=== PATIENT | male | born 1935 | race Caucasian/White ===

== ENCOUNTER 2017-11-27 20:24 | Inpatient (IN) | payer MEDICARE, OTHER ==
[~2017-11-27] VITALS: Ht 180.3 cm; Wt 59.4 kg
[2017-11-27] MEDS ORDERED: LORAZEPAM 2 MG/1 ML VIAL ONE (22:36)
[2017-11-27] MEDS ORDERED: LORAZEPAM 2 MG/1 ML VIAL IM ONE (22:45)
--- NOTE | 2017-11-28 00:35 | NUR ---
REPORT GIVEN TO U NURSEJOSE
--- NOTE | 2017-11-28 02:45 | NUR ---
Pt. admitted to [facility], under care of Dr. SOUTH/CHARISSA Belongs List completed
[2017-11-28 03:00] VITALS: BP 134/78
[2017-11-28] MEDS ORDERED: MAGNESIUM HYDROXIDE 30 ML LIQUID UDC PO PRN (03:00)
[2017-11-28] MEDS ORDERED: MAG HYDROX/AL HYDROX/SIMETH 30 ML LIQUID UDC PO PRN (03:00)
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
[2017-11-28] MEDS ORDERED: OLANZAPINE 10 MG VIAL IM ONE (05:15)
--- NOTE | 2017-11-28 05:43 | NUR ---
pt has been awake, and agitated, for the past hour. he is now pounding the wall, and attempting to climb out of the zeke chair. attempts to strike staff, when redirected. Dr Lowery was paged, and pt was medicated with zyprexa 5 mg IM to the left deltoid, per orders, at 0534. as of 542, he remains restless, in the chair. monitored closely by staff. will continue to monitor closely.
--- NOTE | 2017-11-28 06:30 | NUR ---
APPEARS CALMER, NOW. ASSISTED TO BED. DIAPER CHANGED. APPEARS TO BE ASLEEP. NO DISTRESS NOTED.
[2017-11-28 07:30] VITALS: BP 132/67
[2017-11-28] MEDS: ACETAMINOPHEN 325 MG TABLET PO PRN (10:04)
[2017-11-28] MEDS: LORAZEPAM 1 MG TABLET PO PRN (10:04)
--- NOTE | 2017-11-28 13:00 | NUR ---
[facility] 1:1 sitter at bedside. Patient is sleeping at this time, in no acute distress. received report from Vincent. Will continue to monitor
[2017-11-28] MEDS: QUETIAPINE FUMARATE 25 MG TABLET PO SCH (16:11)
--- NOTE | 2017-11-28 18:15 | NUR ---
End of shift note: Patient in bed, asleep, sitter at bedside. No acute distress noted. Patient refused to eat dinner, will endorse to material handler 2nd shift.
[2017-11-28 19:00] VITALS: BP 102/80
[2017-11-29 04:00] VITALS: BP 96/51
[2017-11-29 08:00] VITALS: BP 143/84
[2017-11-29] MEDS: QUETIAPINE FUMARATE 25 MG TABLET PO SCH ×4 (08:37→20:41)
[2017-11-29] MEDS ORDERED: OLANZAPINE 10 MG VIAL IM ONE (10:30)
[2017-11-29] MEDS ORDERED: LORAZEPAM 2 MG/1 ML VIAL IM ONE (10:30)
--- NOTE | 2017-11-29 10:31 | NUR ---
Noted pt with aggressive and combative behavior. Pt got out of bed and started taking off his clothes and when redirected by BUSINESS CONSULTANT, attempted to strike out at staff members. Hitting jamison and room furniture. Started to walk out of his room undressed. Unable to redirect pt and calm down. Pt attempting to kick staff as well when redirected to chair. All non-drug interventions ineffective at this time. Relayed to Dr. Lowery and obtained telephone order for Zyprexa 5mg IM and Lorazepam 1mg IM X 1 dose only. T.O. read back and verified with Dr. Lowery. Noted and carried out.
[2017-11-29] MEDS ORDERED: CLONIDINE HCL 0.1 MG TABLET PO PRN (11:30)
--- NOTE | 2017-11-29 13:30 | NUR ---
Unable to tolerate PO medication at this time. Pt unable to follow directions. Appears restless but drowsy. Will continue to monitor.
[2017-11-29 15:34] VITALS: BP 100/60
[2017-11-29] MEDS: LORAZEPAM 1 MG TABLET PO PRN (16:49)
[2017-11-29] MEDS: OLANZAPINE ZYDIS 5 MG TAB.RAPDIS PO PRN (16:49)
--- NOTE | 2017-11-29 18:50 | NUR ---
Pt continued to have behavioral manifestations throughout shift. Pt remained aggressive and combative. Continued to have episodes of banging on the wall and side rails. Was up in chair and banging on his table. Pt restless. Redirectable at times. No acute distress noted. 1:1 sitter at bedside. Required 3-4 staff members for incontinence care to be provided. Will endorse to incoming nurse.
--- NOTE | 2017-11-29 19:10 | NUR ---
RECEIVED PT ASLEEP ON BED, ON 1:1 SITTER AT BEDSIDE. NO SIGNS OF ACUTE DISTRESS NOTED. SAFETY MEASURES INITIATED.
[2017-11-29 19:19] VITALS: BP 119/74
--- NOTE | 2017-11-30 06:48 | NUR ---
PT SLEPT THROUGHOUT THE SHIFT. ON 1:1 SITTER AT BEDSIDE. NO SIGNS OF RSPIRTATORY DISTRESS NOTED. SAFE ENVIRONMENT MAINTAINED AT ALL TIMES.
[2017-11-30 07:13] LABS: ALANINE AMINOTRANSFERASE 17 U/L (16-63); ALKALINE PHOSPHATASE 81 U/L (50-136); ASPARTATE AMINOTRANSFERASE 25 U/L (15-37); BILIRUBIN,TOTAL 0.4 mg/dL (0.2-1.0); CARBON DIOXIDE 31 mmol/L (21-32); CHLORIDE 107 mmol/L (98-107); CREATININE 1.2 mg/dL (0.6-1.3); GLUCOSE 92 mg/dL (74-106); POTASSIUM 3.4 mmol/L (3.5-5.1); TOTAL PROTEIN, SERUM 6.6 g/dL (6.4-8.2); UREA NITROGEN, BLOOD 23 mg/dL (7-18)
--- NOTE | 2017-11-30 07:53 | NUR ---
RECEIVED PATIENT ASLEEP BUT EASILY AROUSABLE ON ROUNDS NO S/S OF AGGRESSION AT THIS TIME REMAIN ON HOLD FOR SAFETY.WILL CONTINUE TO PROVIDE SAFE AND THERAPEUTIC ENVIRONMENT AT ALL TIMES.
[2017-11-30 08:00] VITALS: BP 121/52
[2017-11-30 08:19] LABS: THYROID STIMULATING HORMONE 0.313 mIU/mL (0.358-3.740)
--- NOTE | 2017-11-30 09:47 | NUR ---
DR SOUTH HERE SEEN PATIENT WITH DAYS HOLD ORDER AND NOTED PATIENT IS UNABLE TO SIGN AT THIS TIME
[2017-11-30] MEDS: QUETIAPINE FUMARATE 25 MG TABLET PO SCH ×4 (11:00→20:22)
--- NOTE | 2017-11-30 12:45 | NUR ---
SITTING UP ON THE BONNIE CHAIR IN HIS ROOM VERY CONFUSED BUT TOOK HIS MEDICATIONS MADE COMFORTABLE AND WILL CONTINUE TO OBSERVE.
[2017-11-30] MEDS: LORAZEPAM 1 MG TABLET PO PRN (14:22)
--- NOTE | 2017-11-30 14:23 | NUR ---
VERY CONFUSED AGITATED GRABBING AND COMBATIVE UNABLE TO REDIRECT MEDICATED WITH ATIVAN ORDERED AND WILL OBSERVE.
[2017-11-30] MEDS ORDERED: POTASSIUM CHLORIDE 20 MEQ TAB.PRT.SR PO ONE (14:45)
--- NOTE | 2017-11-30 16:05 | NUR ---
STILL VERY AGITATED OUT OF CONTROL GRABBING SWINGING CALLED DR SOUTH AND LEFT A MESSAGE.
[2017-11-30] MEDS ORDERED: OLANZAPINE 10 MG VIAL IM STA (16:14)
[2017-11-30 16:19] VITALS: BP 130/80
--- NOTE | 2017-11-30 16:22 | NUR ---
ZYPREXA GIVEN IM ORDERED AND WILL OBSERVE.
--- NOTE | 2017-11-30 18:46 | NUR ---
SITTING UP ON THE CHAIR VERY CONFUSED AND DISORIENTED WITH LOW ENERGY NOT STRIKING OUT AT THIS TIME WILL CONTINUE TO OBSERVE AND PROVIDE SAFE AND THERAPEUTIC ENVIRONMENT
--- NOTE | 2017-11-30 19:00 | NUR ---
PATIENT UP IN CHAIR, CONFUSED, WITH EPISODES OF COMBATIVE BEHAVIOR, TRIES TO HIT STAFF DURING CARE, OFFER FOOD AND DRINK, PATIENT TALKS TO THE SHARMA AND SELF, CONT ON 1;1 SITTER FOR SAFETY, CONT TO MONITOR.
[2017-11-30 20:15] VITALS: BP 143/86
[2017-11-30] MEDS: ZOLPIDEM 5 MG TABLET PO PRN (22:58)
[2017-11-30] MEDS: ACETAMINOPHEN 325 MG TABLET PO PRN (22:59)
[2017-12-01] MEDS: LORAZEPAM 1 MG TABLET PO PRN ×2 (01:31→17:39)
--- NOTE | 2017-12-01 06:38 | NUR ---
PATIENT WAS PUT BACK TO BED AT 0100, PATIENT STILL AWAKE TRIES TO CLIMB OUT OF BED, PATIENT SLEPT FOR 45 MINUTES ONLY. STILL COMBATIVE TRIES TO HIT STAFF, CONT 1;1 SITTER FOR SAFETY.
[2017-12-01 07:11] VITALS: BP 134/85
[2017-12-01] MEDS: OLANZAPINE ZYDIS 5 MG TAB.RAPDIS PO PRN (07:51)
--- NOTE | 2017-12-01 07:54 | NUR ---
SITTING UP ON THE CHAIR BANGING AND STRIKING OUT UNABLE TO RELAY NEEDS AND UNABLE TO REDIRECT MEDICATED WITH ORAL ZYPREXA ORDERED AND WILL OBSERVE.
[2017-12-01] MEDS: QUETIAPINE FUMARATE 25 MG TABLET PO SCH ×4 (08:41→20:25)
[2017-12-01] MEDS: Z GUARD REMEDY PASTE 57 GM TUBE TOP SCH ×2 (09:46→20:25)
--- NOTE | 2017-12-01 09:47 | NUR ---
DR SOUTH HERE TO SEE PATIENT AWARE OF UNCOOPERATIVE AND COMBATIVENESS WITH NEW ORDERS AND NOTED.
[2017-12-01 13:00] VITALS: BP 138/84
--- NOTE | 2017-12-01 15:12 | NUR ---
Initial Discharge Instructions: Patient currently lives at home with his family [[id number], [place] [id number]; [phone]]. SW will attempt to find contact information for patient's family. SW will continue to collaborate with pt, MD, and the treatment team to discuss most appropriate discharge plans for this patient. SW will form a safe and proper discharge plan.
[2017-12-01 15:30] VITALS: BP 144/78
[2017-12-01] MEDS: ACETAMINOPHEN 325 MG TABLET PO PRN (17:39)
--- NOTE | 2017-12-01 17:39 | NUR ---
REMAIN CONFUSED DISORIENTED TRYING TO GET OUT OF THE CHAIR UNAWARE OF HIS DESTINATION NOTED WITH FACIAL GRIMACING UNABLE TO REDIRECT MEDICATED WITH TYLENOL AND ATIVAN ORDERED MADE COMFORTABLE AND WILL CONTINUE TO OBSERVE.
--- NOTE | 2017-12-01 19:00 | NUR ---
Received patient in chair, awake still combative, tries to strike staff and tries to kick staff also, cont 1;1 sitter for safety, needs maximum assist with adl.
[2017-12-01 19:34] VITALS: BP 142/86
[2017-12-01] MEDS: ZOLPIDEM 5 MG TABLET PO PRN (20:59)
[2017-12-02 05:30] VITALS: BP 123/78
--- NOTE | 2017-12-02 05:38 | NUR ---
PATIENT SLEPT FOR 9.40 HOURS, KEPT CLEAN AND DRY, NO S/S OF DISCOMFORT, KEPT CLEAN DRY AND COMFORTABLE, CONT ON 1;1 SITTER FOR SAFETY. CONT TO MONITOR.
[2017-12-02 07:49] VITALS: BP 156/92
[2017-12-02] MEDS: QUETIAPINE FUMARATE 25 MG TABLET PO SCH ×4 (08:06→20:53)
[2017-12-02] MEDS: Z GUARD REMEDY PASTE 57 GM TUBE TOP SCH ×2 (08:06→20:53)
--- NOTE | 2017-12-02 12:32 | NUR ---
TRANSFER THE PT TO U VIA RANJEET CHAIR IN STABLE CONDITION.
[2017-12-02] MEDS: OLANZAPINE ZYDIS 5 MG TAB.RAPDIS PO PRN (12:39)
--- NOTE | 2017-12-02 12:41 | NUR ---
GPS/RN- patient received anxious, restless, confused disorganized, disrobing, aggressive. PRN offered by staff, slapping med cup, combative, behavior escalating. Redirected calm at this time continue to monitor
--- NOTE | 2017-12-02 12:50 | NUR ---
Patient received to care in zeke-chair. Pt is irritable, removes his gown, angry on approach. Pt does not answer questions, cussing. JEANNIE Foster offered, pt threw the pill on the floor. will continue to monitor.
[2017-12-02 13:42] VITALS: BP 140/92
[2017-12-02] MEDS ORDERED: OLANZAPINE 10 MG VIAL IM ONE (13:45)
--- NOTE | 2017-12-02 13:48 | NUR ---
GPS/RN- patient anxious restless, sitting up in gerichair with table for security public safety officer at side, patient attempting to slide out of chair, disrobing, swinging at staff when redirected. Dr Lowery Notified. Received orders for Zyprexa 10mg IM Once, orders repeated back. Vitals stable for IM.
--- NOTE | 2017-12-02 13:54 | NUR ---
GPS/RN- patient attempting to grab staff and patients as they walk by. patient confused and disorganized. unable to redirect. refuses PRN, combative. Slapping med cup out of nurses hand.
[2017-12-02 15:41] VITALS: BP 144/98
[2017-12-02 19:30] VITALS: BP 103/65
--- NOTE | 2017-12-02 23:40 | NUR ---
GPS: TRANSFERRED PATIENT TO 2ND FLOOR VIA BONNIE CHAIR ESCORTED VIA 1:1 SITTER. ROOM NUMBER [id number] PSYCH OVERFLOW.V/S WNL. NO C.O PAIN OR DISCOMFORT. REPORT GIVEN TO ADEEL PERALES.
--- NOTE | 2017-12-02 23:45 | NUR ---
PT ARRIVED ON GP OVERFLOW FLOOR AT 2345, ESCORTED BY 1:1 SITTER AND RN. PT IN BONNIE-CHAIR. 1:1 SITTER AT BEDSIDE. PT STABLE, NO PAIN, C/P, SOB, N/V. WILL CONTINUE TO MONITOR.
[2017-12-03 00:15] VITALS: BP 117/76
[2017-12-03 03:46] VITALS: BP 108/71
--- NOTE | 2017-12-03 04:30 | NUR ---
PT SLEEPING IN BED. SITTER AT BEDSIDE. VSS, NO COMPLAINTS OF PAIN, C/P, SOB, N/V. WILL CONTINUE TO MONITOR AND PROVIDE SAFETY PRECAUTIONS.
[2017-12-03 06:43] LABS: CARBON DIOXIDE 29 mmol/L (21-32); CHLORIDE 107 mmol/L (98-107); CREATININE 1.1 mg/dL (0.6-1.3); GLUCOSE 91 mg/dL (74-106); POTASSIUM 3.6 mmol/L (3.5-5.1); UREA NITROGEN, BLOOD 28 mg/dL (7-18)
[2017-12-03 08:00] VITALS: BP 142/92
[2017-12-03] MEDS: QUETIAPINE FUMARATE 25 MG TABLET PO SCH ×4 (08:06→20:43)
[2017-12-03] MEDS: LORAZEPAM 1 MG TABLET PO PRN ×2 (08:06→15:55)
--- NOTE | 2017-12-03 08:06 | NUR ---
pt is very restless Ativan 1mg Po per orders given
[2017-12-03] MEDS: Z GUARD REMEDY PASTE 57 GM TUBE TOP SCH ×2 (08:14→20:44)
[2017-12-03] MEDS: OLANZAPINE ZYDIS 5 MG TAB.RAPDIS PO PRN (09:45)
[2017-12-03 16:09] VITALS: BP 106/73
[2017-12-03 19:00] VITALS: BP 106/65
--- NOTE | 2017-12-03 19:30 | NUR ---
RECEIVED SHIFT REPORT FROM EDITH HU. PT RESTING IN BED COMFORTABLY. PT IS CALM & COOPERATIVE. 1:1 SITTER AT BEDSIDE FOR SAFETY. PT IS ON 5250 FOR DTO. DENIES PAIN, C/P, SOB, N/V. BED IN LOW AND LOCKED POSITION WITH BILATERAL UPPER SIDERAILS UP. WILL CONTINUE TO MONITOR AND PROVIDE SAFETY PRECAUTIONS.
[2017-12-04 04:00] VITALS: BP 117/78
--- NOTE | 2017-12-04 06:33 | NUR ---
PT SLEPT COMFORTABLY THROUGH THE NIGHT. PROVIDED REORIENTATION TO REASSURE PT OF ENVIRONMENT/SURROUNDING. PT DID NOT HAVE ANY EPISODE OF VOID OR BM THIS SHIFT. ENCOURAGED 1:1 SITTER TO PROVIDE ORAL HYDRATION ONCE PT IS AWAKE. PT DOES NOT APPEAR TO BE IN APPARENT DISTRESS. PROVIDED 60 CC OF ORAL HYDRATION AROUND 0600. BED IN LOW AND LOCKED POSITION WITH BILATERAL UPPER SIDERAILS UP. 1:1 SITTER AT BEDSIDE FOR SAFETY PRECAUTIONS.
[2017-12-04 07:33] VITALS: BP 118/70
[2017-12-04] MEDS: QUETIAPINE FUMARATE 25 MG TABLET PO SCH (08:03)
[2017-12-04] MEDS: OLANZAPINE ZYDIS 5 MG TAB.RAPDIS PO PRN (08:03)
[2017-12-04] MEDS: Z GUARD REMEDY PASTE 57 GM TUBE TOP SCH ×2 (08:40→20:53)
[2017-12-04] MEDS: LORAZEPAM 1 MG TABLET PO PRN ×2 (11:28→22:54)
--- NOTE | 2017-12-04 12:37 | NUR ---
pt is combative hitting and scratching the staff and pulling the stuff from room dr huggins made aware
--- NOTE | 2017-12-04 12:41 | NUR ---
Firearms Report: Die Sinker completed and submitted [employer] Firearms Report on 12/04/17 for 5250 GD certification.
[2017-12-04] MEDS ORDERED: OLANZAPINE 10 MG VIAL IM ONE (12:45)
[2017-12-04] MEDS: QUETIAPINE FUMARATE 100 MG TABLET PO SCH ×2 (13:13→17:46)
[2017-12-04 14:25] VITALS: BP 100/64
--- NOTE | 2017-12-04 16:00 | NUR ---
Gps/Director Of Services- Received report from Amanda Martinez, received via zeke-chair, appeared to be asleep, no distress., kept sitter for safety.
--- NOTE | 2017-12-04 16:02 | NUR ---
transfer the pt to u via lien chair in stable condition
[2017-12-04] MEDS: ENSURE WITH FIBER 237 ML LIQUID (CHOCOLATE) PO SCH (17:50)
--- NOTE | 2017-12-04 18:22 | NUR ---
Gps/Major Gifts Director- Sleepy/drowsy, arousable, remains up on his zeke-chair. Needed assist with his meals. Noted occ. weak coughing during dinner, sitter was instructed not to feed pt. if sleepy ,not following directions. Continue to monitor safety.
--- NOTE | 2017-12-04 19:30 | NUR ---
RECEIVED PATIENT IN THE HALLWAY NEAR THE NURSING STATION. HE IS NOTED AWAKE A/O X1. HE CONTINUE ON 1:1 SUPERVISION FOR SAFETY PRECAUTION. HE IS NOTED WITH FLAT AFFECT, APATHETIC. MUMBLES WORDS, DISORGANIZED AND GUARDED. CONFUSED AND UNABLE TO VERBALIZED FEELINGS. HE IS SOMEWHAT RESISTANCE TO CARE AND ADLs. HE IS ABLE TO TAKE MEDICATIONS CRUSHED AND IN APPLE SAUCE. V/S STABLE AT THIS TIME. SAFETY WAS EMPHASIS. WILL CONTINUE TO MONITOR CLOSELY.
[2017-12-04 20:19] VITALS: BP 116/74
[2017-12-04] MEDS: ZOLPIDEM 5 MG TABLET PO PRN (21:15)
--- NOTE | 2017-12-04 21:39 | NUR ---
PATIENT NOTED RESTLESS, UNABLE TO FALL ASLEEP. AMBIEN 5MG PO PRN WAS GIVEN FOR INSOMNIA. WILL CONTINUE TO MONITOR.
--- NOTE | 2017-12-04 22:54 | NUR ---
AMBIEN 5MG PO PRN FOR INSOMNIA NOT EFFECTIVE. PT UNABLE TO FALL ASLEEP. CONTINUE RESTLESS. ATIVAN 1MG PO PRN WAS GIVEN FOR AGITATION. WILL CONTINUE TO MONITOR.
[2017-12-05 07:30] VITALS: BP 143/90
[2017-12-05] MEDS: ENSURE WITH FIBER 237 ML LIQUID (CHOCOLATE) PO SCH ×2 (08:38→17:27)
[2017-12-05] MEDS: Z GUARD REMEDY PASTE 57 GM TUBE TOP SCH ×2 (08:42→20:47)
[2017-12-05] MEDS: QUETIAPINE FUMARATE 100 MG TABLET PO SCH ×3 (08:45→16:38)
[2017-12-05 15:05] VITALS: BP 127/80
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
[2017-12-05] MEDS: ZOLPIDEM 5 MG TABLET PO PRN (20:46)
[2017-12-06] MEDS: LORAZEPAM 1 MG TABLET PO PRN ×2 (02:42→11:24)
--- NOTE | 2017-12-06 07:03 | NUR ---
PATIENT DID NOT SLEEP, PATIENT NOTED SLEEPY BUT RESIST TO GO TO SLEEP, CONT 1;1 SITTER FOR SAFETY, STILL WITH EPISODES OF STRIKING STAFF, CLIMB OOBS, MEDICATED FOR AGITATION WITH SOME HELP, CONT TO MONITOR.
[2017-12-06 07:30] VITALS: BP 145/83
[2017-12-06] MEDS: QUETIAPINE FUMARATE 100 MG TABLET PO SCH ×3 (08:14→17:14)
[2017-12-06] MEDS: Z GUARD REMEDY PASTE 57 GM TUBE TOP SCH ×2 (08:15→20:49)
[2017-12-06] MEDS: ENSURE WITH FIBER 237 ML LIQUID (CHOCOLATE) PO SCH ×2 (08:15→17:18)
[2017-12-06 15:00] VITALS: BP 113/71
--- NOTE | 2017-12-06 17:39 | NUR ---
Gps/Marking Clerk- Was able to stay up on his zeke-chair, and was in the activity room till after lunch. Patient was put back to bed w/ 2 staff assisting, repositioned for comfort.Unable to eat dinner at this time, pt. was sleeping , 1700 seroquel unable to administer , will re -offer at a later time ..No aggressive behavior noted , no striking noted this pm. Continue to monitor safety
--- NOTE | 2017-12-06 17:56 | NUR ---
Gps/Radiosonde Operator- Awake, HOB elevated, sitter assisted pt. with dinner, MOM 30 ml was given po with 4 0z.of prune juice, constipated, no bm for few day, abdomen soft not distended.
[2017-12-06 21:20] VITALS: BP 126/77
[2017-12-07] MEDS: OLANZAPINE ZYDIS 5 MG TAB.RAPDIS PO PRN (08:09)
[2017-12-07] MEDS: LORAZEPAM 1 MG TABLET PO PRN ×2 (08:09→17:13)
[2017-12-07 08:30] VITALS: BP 141/98
[2017-12-07] MEDS: ENSURE WITH FIBER 237 ML LIQUID (CHOCOLATE) PO SCH ×2 (08:33→17:34)
[2017-12-07] MEDS: Z GUARD REMEDY PASTE 57 GM TUBE TOP SCH ×2 (08:34→20:13)
[2017-12-07] MEDS: QUETIAPINE FUMARATE 100 MG TABLET PO SCH ×4 (08:52→20:13)
[2017-12-07] MEDS: ACETAMINOPHEN 325 MG TABLET PO PRN (08:52)
--- NOTE | 2017-12-07 11:14 | NUR ---
GPS: Nursing Notes: Thought Disorder: Patient is awake and responding to his name, confused, disoriented, impaired judgment, poor insight, restless, episodes of constantly trying to climb over the side rails, striking out when staff trying to change his wet diaper, poor impulse control, resistant with nursing care, unable to follow directions, continue with 1:1 sitter for assaultive and fall precautions, unable to formulate a viable plan for self care, continue with treatment plan.
[2017-12-07 15:24] VITALS: BP 124/70
[2017-12-07 20:00] VITALS: BP 122/85
--- NOTE | 2017-12-08 06:06 | NUR ---
Received Pt in bed sleeping with 1:1 sitter present. Irritable upon waking, noted to be confused, disoriented, and disorganized. Compliant with medications with prompting. Pt then went back to sleep. VS stable, no c/o pain.
[2017-12-08 07:30] VITALS: BP 114/81
[2017-12-08] MEDS: ENSURE WITH FIBER 237 ML LIQUID (CHOCOLATE) PO SCH ×2 (09:00→17:00)
[2017-12-08] MEDS: QUETIAPINE FUMARATE 100 MG TABLET PO SCH ×4 (09:05→21:16)
[2017-12-08] MEDS: Z GUARD REMEDY PASTE 57 GM TUBE TOP SCH ×2 (09:05→21:24)
[2017-12-08] MEDS: OLANZAPINE ZYDIS 5 MG TAB.RAPDIS PO PRN ×2 (09:24→17:36)
[2017-12-08] MEDS: DIVALPROEX 250 MG TABLET.DR PO SCH ×2 (12:58→17:07)
[2017-12-08 15:13] VITALS: BP 136/76
[2017-12-08 19:30] VITALS: BP 115/70
[2017-12-08] MEDS: LORAZEPAM 1 MG TABLET PO PRN (19:57)
--- NOTE | 2017-12-08 20:00 | NUR ---
RECEIVED PATIENT IN HIS ROOM SITTING IN A BONNIE CHAIR. HE IS NOTED AWAKE A/O X0. HE CONTINUE ON 1:1 SUPERVISION FOR FALL AND AGGRESSIVE/COMBATIVE BX. PRECAUTION. HE IS NOTED WITH FLAT AFFECT, APATHETIC. MUMBLES WORDS, CONFUSED DISORGANIZED AND GUARDED. UNABLE TO VERBALIZED FEELINGS. HE IS RESISTANT TO CARE AND ADLs. HE IS NOTED ANXIOUS AND RESTLESS. ATIVAN 1 MG PO PRN WAS GIVEN IN APPLE SAUCE, HOWEVER, HE SPITED HALF OF THE MEDICATION. HE IS UNABLE TO BE REDIRECTED. V/S STABLE AT THIS TIME. SAFETY WAS EMPHASIS. WILL CONTINUE TO MONITOR CLOSELY.
--- NOTE | 2017-12-08 21:20 | NUR ---
ATTEMPTED TO ADMINISTER QHS MEDICATION SEROQUEL 100MG PO, HOWEVER, PATIENT SPITTED APPROX HALF OF THE PILL. UNABLE TO BE REDIRECTED. WILL CONTINUE TO MONITOR.
[2017-12-08] MEDS: ZOLPIDEM 5 MG TABLET PO PRN (22:52)
--- NOTE | 2017-12-08 22:55 | NUR ---
PATIENT CONTINUE RESTLESS, AND UNABLE TO FALL ASLEEP, AMBIEN 5MG PO PRN WAS GIVEN FOR INSOMNIA. WILL CONTINUE TO MONITOR.
[2017-12-09 07:30] VITALS: BP 118/74
[2017-12-09] MEDS: ENSURE WITH FIBER 237 ML LIQUID (CHOCOLATE) PO SCH ×2 (08:53→17:00)
[2017-12-09] MEDS: DIVALPROEX SPRINKLE 125 MG CAP.SPRINK PO SCH ×4 (08:53→17:50)
[2017-12-09] MEDS: Z GUARD REMEDY PASTE 57 GM TUBE TOP SCH ×2 (08:53→21:02)
[2017-12-09] MEDS: QUETIAPINE FUMARATE 100 MG TABLET PO SCH ×3 (08:53→12:46)
[2017-12-09] MEDS: OLANZAPINE ZYDIS 5 MG TAB.RAPDIS PO PRN ×2 (09:28→09:33)
[2017-12-09] MEDS ORDERED: OLANZAPINE 10 MG VIAL IM ONE (11:00)
--- NOTE | 2017-12-09 11:03 | NUR ---
GPS.RN- patient continues to be anxious restless, aggressive, unable to safely provide care, patient refused PO meds, offered PRN refused, patient behavior escalating, patient in room with sitter for safety, removed from stimuli in hallway, continues combative, Dr Lowery Notified. orders received and repeated back Zyprexa 10mg IM once.
[2017-12-09] MEDS ORDERED: HALOPERIDOL LACTATE 5 MG/1 ML VIAL IM STA (12:55)
[2017-12-09] MEDS: HALOPERIDOL 5 MG TABLET PO SCH ×2 (13:00→17:50)
[2017-12-09] MEDS: diphenhydrAMINE 25 MG/10 ML UDC PO SCH (18:00)
[2017-12-09 18:26] VITALS: BP 133/79
--- NOTE | 2017-12-09 18:45 | NUR ---
GPS.RN- patient continues to be anxious restless frequent redirection needed. patient judgement and insight are impaired, refusing meals, unable to redirect, does not comprehend. Frequent redirection needed for med compliance, spitting out meds. Confused, disorganized, disoriented, disrobing, aggressive when attempting to assist with ADLs and provide care, attempts to climb out of bed without assistance fall risk continues with sitter for safety.
--- NOTE | 2017-12-09 19:45 | NUR ---
RECEIVED PATIENT IN HIS ROOM IN BED. HE IS NOTED AWAKE A/O X0. HE CONTINUE ON 1:1 SUPERVISION FOR FALL AND AGGRESSIVE/COMBATIVE BX. PRECAUTION. HE IS NOTED RESTLESS, FLAT AFFECT, LABILE BX, LOW MOOD. MUMBLES WORDS, CONFUSED DISORGANIZED UNCOOPERATIVE AND GUARDED. UNABLE TO VERBALIZED FEELINGS. HE IS RESISTANT TO CARE AND ADLs. NO EATING, LOW FLUID INTAKE HE WAS OFFERED SNACKS, HOWEVER, HE ONLY HAD A FEW SIPS OF ENSURES. HE CONTINUE SPITTING HIS FOOD. HE IS UNABLE TO BE REDIRECTED. V/S STABLE AT THIS TIME. SAFETY WAS EMPHASIS. WILL CONTINUE TO MONITOR CLOSELY.
[2017-12-09] MEDS: ZOLPIDEM 5 MG TABLET PO PRN (22:35)
--- NOTE | 2017-12-09 22:35 | NUR ---
PATIENT CONTINUE RESTLESS, UNABLE TO FALL ASLEEP. AMBIEN 5MG PO PRN WAS GIVEN FOR INSOMNIA. WILL CONTINUE TO MONITOR.
[2017-12-10] MEDS: LORAZEPAM 1 MG TABLET PO PRN ×2 (00:42→13:43)
--- NOTE | 2017-12-10 00:45 | NUR ---
PATIENT CONTINUE RESTLESS IN HIS BED. HE CONTINUE ON 1:1 SUPERVISION FOR SAFETY. V/S NOTED STABLE AT THIS TIME. ATIVAN 1MG PO PRN WAS GIVEN FOR AGITATION, ATIVAN WAS CRUSHED AND GIVEN IN APPLE SAUCE, PATIENT CONTINUE REFUSING TO DRINK FLUIDS AND SPITTING FOOD. WILL CONTINUE WITH PUREED DIET.
[2017-12-10] MEDS: OLANZAPINE ZYDIS 5 MG TAB.RAPDIS PO PRN (05:59)
--- NOTE | 2017-12-10 06:00 | NUR ---
PATIENT NOTED RESTLESS, ANXIOUS, RESISTANT TO CARE, ZYPREXA 5MG PO PRN WAS GIVEN. HE ALSO WAS ABLE TO DRINK ENSURE (230CC APPROX). HE SLEPT FOR APPROX 1.30HRS THROUGH THE NIGHT. Addendum: 12/10/17 at 0707 by VICENTE PEREZ RN HE WILL CONTINUE ON 1:1 SUPERVISION FOR SAFETY
[2017-12-10 07:30] VITALS: BP 123/71
[2017-12-10] MEDS: DIVALPROEX SPRINKLE 125 MG CAP.SPRINK PO SCH ×3 (08:26→17:14)
[2017-12-10] MEDS: Z GUARD REMEDY PASTE 57 GM TUBE TOP SCH ×2 (08:26→21:04)
[2017-12-10] MEDS: HALOPERIDOL 5 MG TABLET PO SCH ×4 (08:26→21:04)
[2017-12-10] MEDS: diphenhydrAMINE 25 MG/10 ML UDC PO SCH ×2 (08:27→21:04)
[2017-12-10] MEDS: ENSURE WITH FIBER 237 ML LIQUID (CHOCOLATE) PO SCH ×2 (08:34→17:15)
[2017-12-10 09:26] LABS: BASOPHILS # (AUTO) 0.1 K/uL (0.0-8.0); EOSINOPHILS # (AUTO) 0.1 K/uL (0.0-0.7); EOSINOPHILS % (AUTO) 0.6 % (0.0-7.0); HEMATOCRIT 41.5 % (36.7-47.1); HEMOGLOBIN 13.9 g/dL (12.5-16.3); LYMPHOCYTES # (AUTO) 0.8 K/uL (20.0-40.0); LYMPHOCYTES % (AUTO) 9.8 % (20.5-51.5); MEAN CORPUSCULAR HEMOGLOBIN 28.6 uug (23.8-33.4); MEAN CORPUSCULAR HGB CONC 34 g/dL (32.5-36.3); MEAN CORPUSCULAR VOLUME 85.4 fL (73.0-96.2); MONOCYTES # (AUTO) 0.5 K/uL (2.0-10.0); MONOCYTES % (AUTO) 5.9 % (0.0-11.0); NEUTROPHILS # (AUTO) 7.1 K/uL (1.8-8.9); NEUTROPHILS % (AUTO) 82.7 % (38.5-71.5); PLATELET COUNT (AUTO) 275 K/uL (152-348); RED BLOOD CELL COUNT(AUTO) 4.86 MIL/uL (4.06-5.63); WHITE BLOOD COUNT (AUTO) 8.5 K/uL (3.6-10.2)
[2017-12-10 09:37] LABS: CARBON DIOXIDE 30 mmol/L (21-32); CHLORIDE 105 mmol/L (98-107); CREATININE 1.5 mg/dL (0.6-1.3); GLUCOSE 113 mg/dL (74-106); POTASSIUM 3.9 mmol/L (3.5-5.1); UREA NITROGEN, BLOOD 50 mg/dL (7-18)
[2017-12-10 09:43] LABS: THYROID STIMULATING HORMONE 0.326 mIU/mL (0.358-3.740)
[2017-12-10 09:44] LABS: MAGNESIUM 2.4 mg/dL (1.8-2.4); PHOSPHOROUS 3.2 mg/dL (2.5-4.9)
[2017-12-10 16:38] VITALS: BP 134/79
[2017-12-10 20:00] VITALS: BP 123/69
--- NOTE | 2017-12-11 06:27 | NUR ---
Received pt, pt asleep in bed with 1:1 sitter within arm length, pt labile, confused, pt compliant with meds with prompting.
[2017-12-11 07:30] VITALS: BP 131/60
[2017-12-11] MEDS: DIVALPROEX SPRINKLE 125 MG CAP.SPRINK PO SCH ×3 (08:23→18:09)
[2017-12-11] MEDS: HALOPERIDOL 5 MG TABLET PO SCH ×4 (08:24→20:04)
[2017-12-11] MEDS: diphenhydrAMINE 25 MG/10 ML UDC PO SCH ×2 (08:24→20:05)
[2017-12-11] MEDS: Z GUARD REMEDY PASTE 57 GM TUBE TOP SCH ×2 (08:24→20:06)
[2017-12-11] MEDS: ENSURE WITH FIBER 237 ML LIQUID (CHOCOLATE) PO SCH ×2 (08:24→17:00)
[2017-12-11 15:15] VITALS: BP 121/62
--- NOTE | 2017-12-11 16:06 | NUR ---
Gps/Customer Order Clerk- Remains with a sitter for safety, restless, fidgety, sliding from his zeke-chair, hitting table, continue to monitor closely for safety, tends to spits out medications . Fluids offered, encouraged.
[2017-12-11] MEDS: LORAZEPAM 1 MG TABLET PO PRN (16:45)
--- NOTE | 2017-12-12 06:05 | NUR ---
GPS: REMAIN UNCOOPERATIVE WITH CARE. CONTINUE SPITTING OUT MEDICATION. ASSISTED WITH ADL'S. CONTINUE ON 1:1 SITTER @ BEDSIDE FOR SAFETY. ZERO SLEEP THROUGH THE NIGHT.POOR PO INTAKE. ENCOURAGED TO PUSH PO FLUID PATIENT SPITT OUT ALL THE FLUID GIVEN VIA STAFF.CONTINUE MONITORING FOR SAFETY.
[2017-12-12 07:30] VITALS: BP 147/98
[2017-12-12] MEDS: HALOPERIDOL 5 MG TABLET PO SCH ×4 (08:50→20:36)
[2017-12-12] MEDS: DIVALPROEX SPRINKLE 125 MG CAP.SPRINK PO SCH ×3 (08:50→17:27)
[2017-12-12] MEDS: diphenhydrAMINE 25 MG/10 ML UDC PO SCH ×2 (08:50→20:36)
[2017-12-12] MEDS: Z GUARD REMEDY PASTE 57 GM TUBE TOP SCH ×2 (08:51→20:36)
[2017-12-12] MEDS: ENSURE WITH FIBER 237 ML LIQUID (CHOCOLATE) PO SCH ×2 (09:05→17:28)
[2017-12-12] MEDS: LORAZEPAM 1 MG TABLET PO PRN ×2 (10:18→17:26)
[2017-12-12] MEDS: ACETAMINOPHEN 325 MG TABLET PO PRN (13:48)
[2017-12-12 16:02] VITALS: BP 143/85
[2017-12-12 20:00] VITALS: BP 132/90
[2017-12-13] VITALS: BP 128/84
[2017-12-13 06:00] VITALS: BP 140/78
--- NOTE | 2017-12-13 06:35 | NUR ---
GPS: REMAIN COOPERATIVE WITH MOST OF MEDICATIONS. CONTINUE SPITTING OUT SOME LIQUID PO MEDICATION. ASSISTED WITH ADL'S. CONTINUE ON 1:1 SITTER @ BEDSIDE FOR SAFETY. 6:30 HRS SLEEP THROUGH THE NIGHT.POOR PO INTAKE. ENCOURAGED TO PUSH PO FLUID..CONTINUE MONITORING FOR SAFETY.
[2017-12-13 07:30] VITALS: BP 114/66
[2017-12-13] MEDS: Z GUARD REMEDY PASTE 57 GM TUBE TOP SCH ×2 (09:00→20:11)
[2017-12-13] MEDS: DIVALPROEX SPRINKLE 125 MG CAP.SPRINK PO SCH ×3 (09:00→16:59)
[2017-12-13] MEDS: HALOPERIDOL 5 MG TABLET PO SCH ×5 (09:00→21:00)
[2017-12-13] MEDS: ENSURE WITH FIBER 237 ML LIQUID (CHOCOLATE) PO SCH ×2 (09:01→16:59)
[2017-12-13] MEDS: diphenhydrAMINE 25 MG/10 ML UDC PO SCH ×3 (09:13→21:00)
[2017-12-13 15:13] VITALS: BP 103/74
[2017-12-13 20:00] VITALS: BP 110/74
--- NOTE | 2017-12-13 21:00 | NUR ---
Patient refuse 2100 meds. Spits out medication. Will continue to monitor.
[2017-12-14] MEDS: LORAZEPAM 1 MG TABLET PO PRN (01:43)
--- NOTE | 2017-12-14 01:54 | NUR ---
Patient is restless. Offered Ativan but spits out medication. Will continue to monitor.
--- NOTE | 2017-12-14 05:58 | NUR ---
Patient slept 0.5 hours in total only. No acute distress noted. Patient was not med compliant. Patient kept spitting the medications out. 1:1 sitter at bedside during all times. Offered nutrition t/o shift but refuse to swallow. He would spit the pudding and/or apple sauce towards the floor. Encouraged PO intake but Very poor PO intake. Assisted the patient to and from the bed to the zeke chair. Patient was restless but quiet. Vital signs remains stable. Safety and comfort measures maintained t/o shift. All needs met.
[2017-12-14] MEDS: diphenhydrAMINE 25 MG/10 ML UDC PO SCH ×2 (08:10→20:28)
[2017-12-14] MEDS: DIVALPROEX SPRINKLE 125 MG CAP.SPRINK PO SCH ×3 (08:10→16:55)
[2017-12-14] MEDS: HALOPERIDOL 5 MG TABLET PO SCH ×3 (08:10→16:55)
[2017-12-14 08:30] VITALS: BP 126/90
[2017-12-14] MEDS: ENSURE WITH FIBER 237 ML LIQUID (CHOCOLATE) PO SCH ×2 (09:14→16:54)
[2017-12-14] MEDS: Z GUARD REMEDY PASTE 57 GM TUBE TOP SCH ×2 (09:14→20:29)
[2017-12-14 16:48] VITALS: BP 103/73
[2017-12-14 19:30] VITALS: BP 151/99
[2017-12-14] MEDS: QUETIAPINE FUMARATE 100 MG TABLET PO SCH ×2 (20:28→20:34)
--- NOTE | 2017-12-14 22:00 | NUR ---
received to care, up in zeke chair, appearing anxious, and restless. talking to self, at times. 1 to 1 sitter at side, for safety. refused all medications, fluids, and food offered. spit out everything offered. as of 2199, he remains restless, in the chair. sitter at side. will continue to monitor closely.
--- NOTE | 2017-12-14 23:00 | NUR ---
shower was given. pt appears calmer, now.
--- NOTE | 2017-12-14 23:20 | NUR ---
Received patient from Geropsych unit admitted as GPS overflow. Admit Dx of Psychosis, under Dr. Lowery. Patient in stable condition with no acute distress. 1:1 sitter at the bedside for safety. Vital signs stable upon admission. On a 30 day hold till 01/13/18. Patient appears calm & withdrawn at the moment. Noted with confusion & not able to comprehend when communicating to him. Patient is gerichair bound. Room checked for safety upon admission. Will continue to monitor through shift.
--- NOTE | 2017-12-14 23:20 | NUR ---
pt transferred to second floor GPS overflow. report given to Sanjeev. pt was transferred in calm, and stable condition. no distress noted.
--- NOTE | 2017-12-15 06:26 | NUR ---
Patient slept total of 3 hours & 45 mins during the night. No acute distress noted. Vital signs stable. 1:1 sitter at the bedside during all times for safety. Offered fluids/nutrition through out shift but patient refused. Patient noted with poor PO intake. Patient was quiet during the night & withdrawn. Safety & comfort measures implemented through shift. All needs met. Will endorse to day shift nurse.
[2017-12-15 07:00] LABS: BASOPHILS # (AUTO) 0.1 K/uL (0.0-8.0); BASOPHILS % (AUTO) 0.7 % (0.0-2.0); EOSINOPHILS # (AUTO) 0.2 K/uL (0.0-0.7); EOSINOPHILS % (AUTO) 1.9 % (0.0-7.0); HEMATOCRIT 45.5 % (36.7-47.1); HEMOGLOBIN 15.6 g/dL (12.5-16.3); LYMPHOCYTES % (AUTO) 12.5 % (20.5-51.5); MEAN CORPUSCULAR HEMOGLOBIN 28.6 uug (23.8-33.4); MEAN CORPUSCULAR HGB CONC 34 g/dL (32.5-36.3); MEAN CORPUSCULAR VOLUME 83.6 fL (73.0-96.2); MONOCYTES # (AUTO) 0.4 K/uL (2.0-10.0); NEUTROPHILS # (AUTO) 6.4 K/uL (1.8-8.9); NEUTROPHILS % (AUTO) 79.9 % (38.5-71.5); PLATELET COUNT (AUTO) 263 K/uL (152-348); RED BLOOD CELL COUNT(AUTO) 5.44 MIL/uL (4.06-5.63)
[2017-12-15 07:24] LABS: ALANINE AMINOTRANSFERASE 26 U/L (16-63); ALKALINE PHOSPHATASE 88 U/L (50-136); ASPARTATE AMINOTRANSFERASE 28 U/L (15-37); BILIRUBIN,TOTAL 0.6 mg/dL (0.2-1.0); CHLORIDE 118 mmol/L (98-107); CREATININE 1.5 mg/dL (0.6-1.3); GLUCOSE 97 mg/dL (74-106); MAGNESIUM 2.8 mg/dL (1.8-2.4); POTASSIUM 4.1 mmol/L (3.5-5.1); TOTAL PROTEIN, SERUM 7.9 g/dL (6.4-8.2); UREA NITROGEN, BLOOD 62 mg/dL (7-18)
[2017-12-15 07:31] LABS: CARBON DIOXIDE 30 mmol/L (21-32)
[2017-12-15 08:00] VITALS: BP 139/80
[2017-12-15] MEDS: diphenhydrAMINE 25 MG/10 ML UDC PO SCH ×2 (08:05→21:23)
[2017-12-15] MEDS: HALOPERIDOL 5 MG TABLET PO SCH ×3 (08:05→16:36)
[2017-12-15] MEDS: DIVALPROEX SPRINKLE 125 MG CAP.SPRINK PO SCH ×3 (08:05→16:36)
[2017-12-15] MEDS: ENSURE WITH FIBER 237 ML LIQUID (CHOCOLATE) PO SCH ×2 (08:06→16:36)
[2017-12-15] MEDS: Z GUARD REMEDY PASTE 57 GM TUBE TOP SCH ×2 (08:06→21:23)
[2017-12-15] MEDS: IV D5 1/2 NS 1000 ML 1,000 ML IV PRN ×2 (10:20→21:41)
[2017-12-15 15:32] VITALS: BP 135/97
--- NOTE | 2017-12-15 18:33 | NUR ---
, up in zeke chair, appearing anxious, and restless. talking to self, at times. 1 to 1 sitter at side, for safety. iv fluids,running and food offered. spit out everything offered. will continue to monitor closely.
[2017-12-15 20:00] VITALS: BP 108/85
[2017-12-15] MEDS: QUETIAPINE FUMARATE 100 MG TABLET PO SCH (21:23)
--- NOTE | 2017-12-16 06:20 | NUR ---
Patient refused to eat/drink all night. I was able to administer his 2100 medication. He spit out a little bit of it. Sat in zeke-chair until he was sleepy. Combative towards staff while awake, such as hitting with his arms. Slept from 11pm-6am. Addendum: 12/16/17 at 0622 by NICK KIRAN RN No PRN medications given last night.
--- NOTE | 2017-12-16 07:40 | NUR ---
RECEIVED PATIENT IN HIS ROOM IN BED. HE IS NOTED SLEEPING CONTINUE ON 1:1 SUPERVISION FOR FALL AND AGGRESSIVE/COMBATIVE BX. PRECAUTION. HE IS NOTED RESTLESS, FLAT AFFECT, LABILE BX, LOW MOOD. MUMBLES WORDS, CONFUSED DISORGANIZED UNCOOPERATIVE AND GUARDED. UNABLE TO VERBALIZED FEELINGS. HE IS RESISTANT TO CARE AND ADLs. HE CONTINUE SPITTING HIS FOOD. HE IS UNABLE TO BE REDIRECTED. V/S STABLE AT THIS TIME. SAFETY WAS EMPHASIS. WILL CONTINUE TO MONITOR CLOSELY.
[2017-12-16 07:41] VITALS: BP 105/71
[2017-12-16] MEDS: ENSURE WITH FIBER 237 ML LIQUID (CHOCOLATE) PO SCH ×2 (08:33→16:53)
[2017-12-16] MEDS: Z GUARD REMEDY PASTE 57 GM TUBE TOP SCH ×2 (08:33→21:06)
[2017-12-16] MEDS: HALOPERIDOL 5 MG TABLET PO SCH ×3 (09:44→16:42)
[2017-12-16] MEDS: DIVALPROEX SPRINKLE 125 MG CAP.SPRINK PO SCH ×3 (09:44→16:42)
[2017-12-16] MEDS: diphenhydrAMINE 25 MG/10 ML UDC PO SCH ×2 (09:44→20:39)
[2017-12-16 10:28] LABS: CARBON DIOXIDE 30 mmol/L (21-32); CHLORIDE 118 mmol/L (98-107); CREATININE 1.5 mg/dL (0.6-1.3); GLUCOSE 96 mg/dL (74-106); POTASSIUM 3.7 mmol/L (3.5-5.1); UREA NITROGEN, BLOOD 55 mg/dL (7-18)
--- NOTE | 2017-12-16 13:26 | NUR ---
Social Work Discharge Update: Patient is not eating and requiring medical intervention as a result of this. Discussed case with Dr Edouard and Marco Lowery who had a conference call at [address] Spicer recommended Hospice to family. They are considering this. Patient's primary needs are now medical and so he may be converted to a medical patient. Dr Spicer is not recommending PEG for patient. Patient has advanced dementia. dowel pin man Rahel PERALES and Hailey were present during conference call. They will work on appropriate disposition for patient. Pt. will not return to GPS unit and is not responding to psychiatric intervention at this point. Placement will be needed in a senior care facility after his stay on the medical floor. dowel pin man agreed to follow up.
--- NOTE | 2017-12-16 13:39 | NUR ---
Social Work Update: Spoke with , Jammie [phone] who states she is the decision-maker but she has no official decision-making capacity and it not DPOA. She says they are working with a placement agent. They are working with Anu Griffithanalisa at [facility] [phone] in the [place] area. She may be open to more local placement as Anu has not found anything for Paras. wants him in a safe environment. Patient's son is Ori Sorensen [phone], a retired firer electric locomotive. is very open to Hospice and says they had good experiences with Hospice for both daughters who . is hard of hearing and says it is easier if we deal with her son for placement. Spoke with Ishaan at [facility] [phone] and she said they have been trying to place the patient in an assisted living. They are not aware of his decline and this process description writer did not feel comfortable sharing his information but instead gathered information. This sr. social media & mobile manager notified Dr Spicer of 's wish for Hospice.
[2017-12-16] MEDS: IV D5 1/2 NS 1000 ML 1,000 ML IV PRN (15:08)
[2017-12-16 16:00] VITALS: BP 140/80
--- NOTE | 2017-12-16 19:20 | NUR ---
RECEIVED PATIENT SITTING IN THE RECLINING CHAIR. ALERT BUT CONFUSED AND DISORIENTED. AFFECT FLAT. IN NO ACUTE DISTRESS. 1:1 SITTER PRESENT. IV SITE ON RIGHT FOREARM INTACT AND PATENT. IVF INFUSING. SAFETY MEASURE INITIATED.
[2017-12-16 19:30] VITALS: BP 128/81
[2017-12-16] MEDS: QUETIAPINE FUMARATE 100 MG TABLET PO SCH (20:38)
[2017-12-17] MEDS: IV D5 1/2 NS 1000 ML 1,000 ML IV PRN (04:14)
[2017-12-17 04:40] VITALS: BP 121/79
--- NOTE | 2017-12-17 06:05 | NUR ---
ALERT BUT CONFUSED AND DISORIENTED. AFFECT FLAT. IN NO ACUTE DISTRESS. 1:1 SITTER PRESENT. IV SITE ON RIGHT FOREARM INTACT AND PATENT. IVF INFUSING. NEEDS ANTICIPATED TO AND MET. SAFETY MEASURE INITIATED.
[2017-12-17 07:51] VITALS: BP 127/78
[2017-12-17] MEDS: DIVALPROEX SPRINKLE 125 MG CAP.SPRINK PO SCH (08:15)
[2017-12-17] MEDS: HALOPERIDOL 5 MG TABLET PO SCH (08:15)
[2017-12-17] MEDS: diphenhydrAMINE 25 MG/10 ML UDC PO SCH (08:16)
[2017-12-17] MEDS: Z GUARD REMEDY PASTE 57 GM TUBE TOP SCH (08:16)
[2017-12-17] MEDS: ENSURE WITH FIBER 237 ML LIQUID (CHOCOLATE) PO SCH (09:00)
--- NOTE | 2017-12-17 10:15 | NUR ---
Discharge Note: [place] [facility] [place] [place] [address]; [place] via ambulance. Please arrange an ambulance for this patient. Patient's room # is 33B. Spoke with Tiffany at the facility who states they are ready to accept the patient today. Spoke with patient's son, Calos Sorensen ([phone]) who is aware and agreeable with discharge plans. Per son, he will speak to the facility about starting the Hospice program for the patient. Patient is alert and oriented to self only. Patient will follow up at the facility with Dr. Bishop (Medical Historian) and Dr. Cortes (Psychiatrist).
--- NOTE | 2017-12-17 12:18 | NUR ---
d/c orders received noted and carried out,d/c instruction and education given to the snf d/c heplock per md orders,pt is confused family made aware about the d/c plan ,pt left the facility via ambulances in stable condition
== END 2017-12-17 12:30 | DRG 885 ==
LOC: ER 20:26 → GPS 11-28 00:09 → GPSOV 11-28 12:45 → GPS 12-02 12:25 → GPSOV 12-02 23:27 → GPS 12-04 16:13 → MED 12-14 23:45 → GPSOV 12-14 23:47
PROVIDERS: ADMIT Psychiatry & Neurology Psychiatry; ATTEND Nurse Practitioner Acute Care
PROC: 0HBRXZZ Excision of Toe Nail, External Approach (ICD-10-PCS; principal; 2017-11-28)
DX: F23 Brief psychotic disorder (principal); N17.0 Acute kidney failure with tubular necrosis; G93.40 Encephalopathy, unspecified; F03.91 Unspecified dementia, unspecified severity, with behavioral disturbance; Z68.1 Body mass index [BMI] 19.9 or less, adult; E44.0 Moderate protein-calorie malnutrition; D68.59 Other primary thrombophilia; M21.612 Bunion of left foot; M21.611 Bunion of right foot; B35.3 Tinea pedis; B35.1 Tinea unguium; L60.3 Nail dystrophy; I10 Essential (primary) hypertension; I73.9 Peripheral vascular disease, unspecified; E78.00 Pure hypercholesterolemia, unspecified; F50.89 Other specified eating disorder; J92.9 Pleural plaque without asbestos; R62.7 Adult failure to thrive; E05.90 Thyrotoxicosis, unspecified without thyrotoxic crisis or storm; E86.0 Dehydration; I70.0 Atherosclerosis of aorta
CPT/HCPCS: 36415; 71045; 80164; 83735; 84100; 84443; 85025; 92610; 93005; 97116; 97530; A4663; J1630; J2060; J2358; J3490; Q0163